=== PATIENT | female | born 1990 | race Caucasian/White ===

== ENCOUNTER 2020-05-02 20:10 | Emergency (ER) | payer OTHER ==
[2020-05-02 20:19] VITALS: TEMP 98.8
[2020-05-02] MEDS ORDERED: SODIUM CHLORIDE 0.9% 500 ML 500 ML IV STA (20:41)
[2020-05-02 21:02] LABS: HCT 41.6 % (34.0-46.0); HGB 13.8 gm/dL (11.4-16.0); MCH 28.1 pg (25.0-35.0); MCHC 33.2 g/dL (31.0-37.0); MCV 84.8 fL (80.0-100.0); Platelet Count 262 k/uL (150-450); RBC 4.91 m/uL (3.80-5.40); RDW 13.1 % (11.5-15.5); WBC 10.1 k/uL (3.8-10.6)
[2020-05-02 21:12] LABS: ALT 20 U/L (4-34); AST 30 U/L (14-36); African American GFR (CKD) >90 (>60 ml/min/1.73 sqM); Albumin 4.3 g/dL (3.5-5.0); Alkaline Phosphatase 53 U/L (38-126); Amylase 61 U/L (30-110); Anion Gap 9 mmol/L; Blood Urea Nitrogen 12 mg/dL (7-17); Calcium 9.6 mg/dL (8.4-10.2); Carbon Dioxide 25 mmol/L (22-30); Chloride 104 mmol/L (98-107); Glucose 78 mg/dL (74-99); Lipase 88 U/L (23-300); Non-African American GFR(CKD) >90 (>60 ml/min/1.73 sqM); Sodium 138 mmol/L (137-145); Total Bilirubin 0.7 mg/dL (0.2-1.3); Total Protein 7.1 g/dL (6.3-8.2)
--- NOTE | 2020-05-02 21:19 | XR ---
EXAMINATION TYPE: XR KUB DATE OF EXAM: 05/02/2020 COMPARISON: None HISTORY: Worsening right-sided abdominal pain times TECHNIQUE: Upright abdomen FINDINGS: IUD is within the pelvis. No suspicious calcifications are identified. Nonspecific bowel ga s is present. Air is predominantly within the colon. No free air is evident. No differential air-flui d levels are present. Psoas margins are normal. Organomegaly is not evident. IMPRESSION: 1. Nonspecific bowel gas. 2. No suspicious acute changes
[2020-05-02 21:21] LABS: Appearance,Urine Clear (Clear); Bilirubin,Urine Negative (Negative); Blood,Urine Negative (Negative); Color,Urine Yellow; Glucose,Urine (UA) Negative (Negative); Ketones,Urine Negative (Negative); Leukocyte Esterase,Urine Negative (Negative); Nitrite,Urine Negative (Negative); Protein,Urine Negative (Negative); Specific Gravity,Urine 1.014 (1.001-1.035); Urobilinogen,Urine <2.0 mg/dL (<2.0)
[2020-05-02 21:45] LABS: Lymphocytes # (M) 2.73 k/uL (1.0-4.8); Neutrophils # (M) 6.67 k/uL (1.3-7.7); Neutrophils % (M) 66 %; Nucleated Red Blood Cells 0 /100 WBC (0-0); Total Cells Counted 100
--- NOTE | 2020-05-02 22:12 | US ---
EXAMINATION TYPE: US abdomen limited DATE OF EXAM: 05/02/2020 COMPARISON: NONE CLINICAL HISTORY: RUQ, epigastric pain. RUQ, epigastric pain x 6 days. Hx appendectomy. EXAM MEASUREMENTS: Liver Length: 15.46 cm Gallbladder Wall: 0.19 cm CBD: 0.48 cm Right Kidney: 10.5 x 5.1 x 4.2 cm Pancreas: Portions seen appear wnl Liver: Appears wnl Gallbladder: Appears anechoic, fold seen. Evidence for sonographic Marks's sign: No CBD: Appears wnl Right Kidney: Renal pelvis appears prominent. IMPRESSION: 1. Unremarkable right upper quadrant ultrasound
--- NOTE | 2020-05-02 22:21 | ED ---
Abdominal Pain HPI - General Chief Complaint: Abdominal Pain Stated Complaint: Right side abd pain Time Seen by Provider: 05/02/20 20:21 Source: patient Mode of arrival: ambulatory Limitations: no limitations - History of Present Illness Initial Comments: 30-year-old female presents denies any significant past history presenting today for chief complaint of abdominal pain. Patient states that after she began a metronidazole gel for bacterial vaginosis from her [employer] she states she developed abdominal cramping. She towards her [employer] who put her on clindamycin orally. Patient states she has had some mild diarrhea and cramping since pain is sometimes in upper abdomen, sometimes lower and has been right sided more than sided. Patient has history of previous appendectomy. Patient denies any vaginal discharge, fevers dysuria urgency frequency flank or back pain she denies any vaginal bleeding or concern for . Patient denies any vomi ting or nausea patient is no additional complete upon arrival patient appears well nontoxic she states that she also ate a marijuana edible earlier today which she is not sure if this exacerbated the pain - Related Data Home Medications Medication Instructions Recorded Confirmed Clindamycin HCl 300 mg PO BID 05/02/20 05/02/20 Allergies Allergy/AdvReac Type Severity Reaction Status Date / Time No Known Allergies Allergy Verified 05/02/20 22:14 Review of Systems ROS Statement: Those systems with pertinent positive or pertinent negative responses have been documented in the HPI. ROS Other: All systems not noted in ROS Statement are negative. Past Medical History Past Medical History: No Reported History History of Any Multi-Drug Resistant Organisms: None Reported Past Surgical History: Appendectomy, Orthopedic Surgery Past Psychological History: No Psychological Hx Reported Smoking Status: Current some day smoker Past Alcohol Use History: Occasional Past Drug Use History: None Reported General Exam - General Exam Comments Initial Comments: General: The patient is awake and alert, in no distress, and does not appear acutely ill. Eye: +3 mm pupils are equal, round and reactive to light, extra-ocular movements are intact. No nystagmus. There is normal conjunctiva bilaterally. No signs of icterus. Ears, nose, mouth and throat: There are moist mucous membranes and no oral lesions. Neck: The neck is supple, there is no tenderness or JVD. Cardiovascular: There is a regular rate and rhythm. No murmur, rub or gallop is appreciated. Respiratory: Lungs are clear to auscultation, respirations are non-labored, breath sounds are equal. No wheezes, stridor, rales, or rhonchi. Gastrointestinal: Soft, non-distended, diffuse poorly localized mild appearing abdominal pain, more so present in the upper mid to right blackburn. abdomen without masses or organomegaly noted. There is no rebound or guarding present. Musculoskeletal: Normal ROM, no tenderness. Strength 5/5. Sensation intact. Radial pulses equal bilaterally 2+. Neurological: A&O x 3. CN II-XII intact grossly, There are no obvious motor or sensory deficits. Coordination appears grossly intact. Speech is normal. Skin: Skin is warm and dry and no rashes or lesions are noted. Psychiatric: Cooperative, appropriate mood & affect, normal judgment. Limitations: no limitations Course Vital Signs 05/02/20 05/02/20 20:14 22:52 Temperature 98.8 F Pulse Rate 60 61 Respiratory 20 16 Rate Blood Pressure 140/82 135/90 O2 Sat by Pulse 100 100 Oximetry Medical Decision Making - Medical Decision Making Lab stable. VS stable. US (-). KUB clear. mild pain on exan. Diarrhea. Patient has had previous appendectomy. HCG (-). At this time feel patient is stable for discharge with outpatient primary care follow-up patient is agreeable to this care plan discharge at this time. - Lab Data Result diagrams: 05/02/20 20:52 05/02/20 20:52 Lab Results 05/02/20 05/02/20 05/02/20 Range/Units 20:52 20:52 20:52 WBC 10.1 (3.8-10.6) k/uL RBC 4.91 (3.80-5.40) m/uL Hgb 13.8 (11.4-16.0) gm/dL Hct 41.6 (34.0-46.0) % MCV 84.8 (80.0-100.0) fL MCH 28.1 (25.0-35.0) pg MCHC 33.2 (31.0-37.0) g/dL RDW 13.1 (11.5-15.5) % Plt Count 262 (150-450) k/uL Neutrophils % Not Reportable Neutrophils % (Manual) 66 % Lymphocytes % Not Reportable Lymphocytes % (Manual) 27 % Monocytes % Not Reportable Monocytes % (Manual) 4 % Eosinophils % Not Reportable Eosinophils % (Manual) 3 % Basophils % Not Reportable Neutrophils # Not Reportable Neutrophils # (Manual) 6.67 (1.3-7.7) k/uL Lymphocytes # Not Reportable Lymphocytes # (Manual) 2.73 (1.0-4.8) k/uL Monocytes # Not Reportable Monocytes # (Manual) 0.40 (0-1.0) k/uL Eosinophils # Not Reportable Eosinophils # (Manual) 0.30 (0-0.7) k/uL Basophils # Not Reportable Nucleated RBCs 0 (0-0) /100 WBC Differential Comment P Manual Slide Review Performed Sodium 138 (137-145) mmol/L Potassium 4.0 (3.5-5.1) mmol/L Chloride 104 (98-107) mmol/L Carbon Dioxide 25 (22-30) mmol/L Anion Gap 9 mmol/L BUN 12 (7-17) mg/dL Creatinine 0.73 (0.52-1.04) mg/dL Est GFR (CKD-EPI)AfAm >90 (>60 ml/min/1.73 sqM) Est GFR (CKD-EPI)NonAf >90 (>60 ml/min/1.73 sqM) Glucose 78 (74-99) mg/dL Calcium 9.6 (8.4-10.2) mg/dL Total Bilirubin 0.7 (0.2-1.3) mg/dL AST 30 (14-36) U/L ALT 20 (4-34) U/L Alkaline Phosphatase 53 (38-126) U/L Total Protein 7.1 (6.3-8.2) g/dL Albumin 4.3 (3.5-5.0) g/dL Amylase 61 (30-110) U/L Lipase 88 (23-300) U/L Urine Color Yellow Urine Appearance Clear (Clear) Urine pH 6.0 (5.0-8.0) Ur Specific [place] 1.014 (1.001-1.035) Urine Protein Negative (Negative) Urine Glucose (UA) Negative (Negative) Urine Ketones Negative (Negative) Urine Blood Negative (Negative) Urine Nitrite Negative (Negative) Urine Bilirubin Negative (Negative) Urine Urobilinogen <2.0 (<2.0) mg/dL Ur Leukocyte Esterase Negative (Negative) Disposition Clinical Impression: Abdominal pain Disposition: HOME SELF-CARE Condition: Good Instructions (If sedation given, give patient instructions): Abdominal Pain (ED) Additional Instructions: Please use medication as discussed. Please follow-up with family doctor in the next 2 days.. Please return to emergency room if the symptoms increase or worsen or for any other concerns. Is patient prescribed a controlled substance at d/c from ED?: No Referrals: Nonstaff,Physician [Primary Care Provider] - 1-2 days Time of Disposition: 22:21
[2020-05-02 22:54] VITALS: BP 135/90; PULSE 61; RESP 16
== END 2020-05-02 22:56 | disposition home or self-care (01) ==
LOC: EC 20:10
DX: R10.11 Right upper quadrant pain (principal); R10.31 Right lower quadrant pain; F17.200 Nicotine dependence, unspecified, uncomplicated; Z90.49 Acquired absence of other specified parts of digestive tract
CPT/HCPCS: 36415; 74018; 76705; 80053; 81003; 82150; 83690; 85025; 99284